=== PATIENT | male | born 1995 | race Caucasian/White ===

== ENCOUNTER 2017-05-18 01:34 | Emergency (ER) | payer MEDICAID ==
[~2017-05-18] VITALS: Ht 182.9 cm; Wt 81.6 kg
[2017-05-18 01:42] VITALS: Ht 182.9 cm; Wt 81.6 kg
[2017-05-18 08:01] VITALS: BP 117/67
== END 2017-05-18 08:01 | disposition home or self-care (01) ==
LOC: ED 01:34
DX: S61.421A Laceration with foreign body of right hand, initial encounter (principal); S66.221A Laceration of extensor muscle, fascia and tendon of right thumb at wrist and hand level, initial encounter; W22.8XXA Striking against or struck by other objects, initial encounter; Y93.89 Activity, other specified; Y99.8 Other external cause status; Y92.89 Other specified places as the place of occurrence of the external cause
CPT/HCPCS: A4570; J2001; Q0092